=== PATIENT | female | born 1955 | race Caucasian/White ===

== ENCOUNTER → 2016-06-05 | Outpatient (CLI) | payer BC | LOC: LAB 15:18 | PROVIDERS: ATTEND Family Medicine | DX: E03.8 Other specified hypothyroidism (principal) | CPT/HCPCS: 36415; 84443 ==

== ENCOUNTER → 2016-07-07 | Outpatient (CLI) | payer BC ==
[2016-07-07 11:27] VITALS: BP 120/73
== END ==
LOC: MHUC 10:15
PROVIDERS: ATTEND Physician Assistant
DX: N30.01 Acute cystitis with hematuria (principal)
CPT/HCPCS: 81002; 99213

== ENCOUNTER → 2016-08-06 | Outpatient (CLI) | payer BC ==
[~2016-08-06] MED LIST: CPR500T PO; NITR100C3 PO
== END ==
LOC: LAB 15:55
PROVIDERS: ATTEND Family Medicine
DX: E03.8 Other specified hypothyroidism (principal)
CPT/HCPCS: 36415; 84443